=== PATIENT | female | born 1955 | race Caucasian/White ===

== ENCOUNTER 2020-03-16 13:35 | Outpatient (CLI) | payer MEDICARE, SELFPAY ==
--- NOTE | ~2020-03-16 | CT_ITS ---
EXAMINATION: CT abdomen w con DATE: 03/16/2020 14:22 INDICATION: Disease of the digestive system TECHNIQUE: Computed tomography (CT) of the abdomen and pelvis was performed with 100 mL Omnipaque-350 intravenous contrast. Automated exposure control and iterative reconstruction technique were employe d. The dose-length product was 319.84 mGy-cm. COMPARISON: 11/13/2018 FINDINGS: Lung bases are clear. Heart size is normal. No pericardial or pleural effusion. Geographic regions of subtly increased enhancement segments 4A and 4B of the liver as well as segment 6 which could repres ent either regions of focal fatty sparing or transient hepatic attenuation difference. No suspicious masslike hepatic lesions identified. Gallbladder, spleen, pancreas, bilateral adrenal glands and kidn eys are normal. Visualized portions of the bowels are unremarkable with no wall thickening or obstruc tion. There is calcified atherosclerosis of the aorta and many of the other arteries. Again seen is m ild stenosis at the proximal superior mesenteric artery. The prior stenosis at the celiac axis as it passes beneath decrease of the diaphragm is not appreciated in the current study with no significant current stenosis. No pathologically enlarged abdominal or pelvic lymphadenopathy. Bones are unremarka ble. IMPRESSION: 1. 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 Mild residual stenosis at the prox imal superior mesenteric artery. Reviewed, dictated and finalized at location A. ENCE COORDINATOR IMPRESSION: 1. 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 Mild residua l stenosis at the proximal superior mesenteric artery.
[2020-03-16 14:07] LABS: Basophils Percent Auto 0.2 % (0.2-1.2); Eosinophils Absolute Auto 0.1 K/mm3 (0-0.3); Eosinophils Percent Auto 0.5 % (0-4.4); Hematocrit 47.1 % (37.0-47.0); Immature Granulocyte Absolute 0.03 K/mm3 (0.00-0.031); Immature Granulocyte Percent A 0.3 % (0-0.5); Lymphocytes Absolute Auto 4.02 K/mm3 (0.9-3.2); Lymphocytes Percent Auto 40.7 % (18.3-44.2); Mean Corpuscular HGB Conc 31.8 g/dl (32-36); Mean Corpuscular Hemoglobin 28.6 pg (26-34); Mean Corpuscular Volume 89.9 fl (80-100); Monocytes Absolute Auto 0.9 K/mm3 (0.1-0.6); Monocytes Percent Auto 9.1 % (2.6-8.5); Neutrophils Absolute Auto 4.9 K/mm3 (1.3-6.7); Neutrophils Percent Auto 49.2 % (45.5-73.1); Platelet Count Result 279 k/mm3 (150-375); Red Blood Count 5.24 M/mm3 (4.2-5.4); Red Cell Distribution Width 13.3 % (11.5-14.5); White Blood Count 9.9 K/mm3 (4.5-10.0)
[2020-03-16 14:15] LABS: INR 0.9; Prothrombin Time 12.5 Seconds (11.1-14.7)
[2020-03-16 14:16] LABS: Alanine Aminotransferase 13 U/L (4-35); Albumin Level 4.1 g/dL (3.5-5.1); Alkaline Phosphatase 64 U/L (38-126); Amylase 65 U/L (30-110); Anion Gap 7 mmol/L (8-16); Aspartate Amino Transferase 24 U/L (14-36); Bilirubin,Total 0.3 mg/dL (0.2-1.3); Blood Urea Nitrogen 16 mg/dL (7-17); Calcium 9.1 mg/dL (8.4-10.2); Carbon Dioxide 27 mmol/L (22-30); Chloride 105 mmol/L (98-107); Estimated Glomerular Filt Rate > 60; Glucose 101 mg/dL (65-105); Lipase 60 U/L (23-300); Sodium 139 mmol/L (137-145)
[2020-03-16 14:16] LABS: Estimated Glomerular Filt Rate > 60
== END 2020-03-16 13:36 | disposition home or self-care (01) ==
LOC: ANHIMG 13:36
PROVIDERS: PCP Internal Medicine; Visit Provider Internal Medicine
DX: R10.9 Unspecified abdominal pain (principal); K52.9 Noninfective gastroenteritis and colitis, unspecified; I70.0 Atherosclerosis of aorta
CPT/HCPCS: 36415; 74160; 80053; 82150; 83690; 85025; 85610; Q9967

== ENCOUNTER 2020-05-14 00:50 | Outpatient (CLI) | payer MEDICARE, SELFPAY ==
[2020-05-14 18:47] LABS: SARS-CoV-2 RNA PCR Negative
== END 2020-05-14 00:51 | disposition home or self-care (01) ==
LOC: ANHCOVIDDT 00:51
PROVIDERS: PCP Internal Medicine; Visit Provider Internal Medicine Gastroenterology
DX: Z01.812 Encounter for preprocedural laboratory examination (principal); Z20.822 Contact with and (suspected) exposure to COVID-19
CPT/HCPCS: C9803; U0003; U0005

== ENCOUNTER 2020-05-17 01:43 | Day surgery (SDC) | payer MEDICARE, SELFPAY ==
[2020-05-10 08:59] VITALS: BMI 23.8
[2020-05-17] VITALS (10 sets, daily range): BP systolic 86–131; BP diastolic 55–97; PULSE 72–103; RESP 18–28; TEMP 36.9; O2SAT 92–98
--- NOTE | ~2020-05-17 | XR_ITS ---
EXAMINATION: XR abdomen/kub 1V EXAM DATE: 05/17/2020 13:45 INDICATION: Abdominal pain post sigmoidoscopy. TECHNIQUE: Frontal upright projection of the upper abdomen, frontal projection of the lower abdomen f or interpretation. There is no prior study for comparison. FINDINGS: There is expected amount of colonic stool and gas. No small bowel dilation, nonobstructiv e bowel gas pattern. There are no suspicious calcifications identified. There is no organomegaly suspected. There are mild bony degenerative changes. IMPRESSION: Unremarkable KUB exam. Please note upright exam is more sensitive for free intraperitone al gas. Reviewed, dictated and finalized at location B. ERCIAL MANAGER IMPRESSION: Unremarkable KUB exam. Please note upright exam is more sensitive for free intraperitoneal gas.
[2020-05-17] MEDS: LACTATED RINGERS 1,000 ML 150 ML IV CONT (10:10)
--- NOTE | 2020-05-17 10:37 | WPDANESEPPF ---
Anes - Initial Pre Proc Eval Procedure: Operation Date: 05/17/20 11:00 Proposed Procedures p Esophagogastroduodenoscopy & Colonoscopy - Hadley Castellano MD Date/Time: 05/17/20 10:37 Surgeon: Hadley Castellano MD Pre Op Diagnosis: Colitis, Abd Pain, Nausea Patient Data Age: 64 Gender: F Height: 5 ft 5 in Weight: 65.8 kg Last Vital Signs Temp 98.5 F 05/17/20 09:55 Pulse 103 H 05/17/20 09:55 Resp 18 05/17/20 09:55 BP 121/79 05/17/20 09:55 Pulse Ox 97 05/17/20 09:55 Allergies Allergy/AdvReac Type Severity Reaction Status Date / Time ciprofloxacin Allergy Unknown Rash Verified 05/17/20 09:50 propoxyphene Allergy Unknown FROM Verified 05/17/20 09:50 DARVOCET Home Medications Medication Instructions Recorded Confirmed Type doxylamine succinate 25 mg tablet 25 mg PO ONCE 02/21/19 05/10/20 History albuterol sulfate 90 mcg/actuation 2 puff INHALATION Q6H PRN #18 gm 07/14/19 05/10/20 Rx aerosol inhaler lisinopril 10 mg tablet 10 mg PO DAILY #90 tablet 03/24/20 05/10/20 Rx omeprazole 20 mg capsule,delayed 20 mg PO DAILY #90 cap 03/24/20 05/10/20 Rx release simvastatin 10 mg tablet 10 mg PO DAILY #90 tablet 03/24/20 05/10/20 Rx lorazepam 0.5 mg tablet 0.5 mg PO BID PRN #60 tablet 04/29/20 05/10/20 Rx estradiol 0.5 mg PO DAILY 05/10/20 05/10/20 History Patient hx anesthesia problems: none Family hx anesthesia problems: none PMFSH Past Medical History Medical History (Updated 05/17/20 @ 10:36 by Kingsley Snyder MD) Essential (primary) hypertension Hyperlipidemia Nausea Non-cardiac chest pain ALEKSANDRA (obstructive sleep apnea) Surgical History Surgical History (Updated 03/29/20 @ 15:20 by Skylar Fay MA) H/O: hysterectomy Family History Family History Sibling Patient's sister is in good health Patient's brother is in good health Cerebrovascular accident Mother Hypertension Father Family history of cardiovascular disease Social History Social History Social History: 1-3 cigarettes a day Smoking packs per day: 1 Smoking cigarettes per day: 20.0 Years smoked: 45 Smoking pack-years: 45.00 Smoking status: Current every day smoker Tobacco type: cigarettes Second hand tobacco smoke exposure: No Alcohol intake: never Substance use type: does not use Living arrangements: with family Spiritual care concerns: No Anes - Eval Final PreProcedure Day of Procedure 05/17/20 10:37 Patient weight: normal Heart: regular rate and rhythm Lungs: clear to auscultation Airway: Mallampati scale class II Neurological: alert and oriented Last oral intake: >/= 8 hours ASA classification: III Emergent: no Anesthetic plan: proceed Anesthesia type and monitoring: general GIVS and standard monitoring Informed Consent: The patient's anesthetic plan and its attendant risks and benefits were discussed with the patient/family/POA. Questions were solicited and answers provided to the satisfaction of the patient/family/POA.
--- NOTE | 2020-05-17 10:41 | PM.HPGS ---
History of Present Illness History of Present Illness Consent: Risks, benefits, and alternatives have been discussed and questions answered. Patient agrees to proceed with procedure. Chief complaint: Colitis, Abd Pain, Nausea Narrative: Nuha Back is a 64 year old female with nausea and dyspepsia, using omeprazole. Also she was having pain in rlq but improved now, she has history of ischemic colitis, last colonoscopy could not pass sigmoid because edema. Review of Systems Constitutional: Constitutional: Denies headache(s) and Denies weakness Eyes: Eyes: Denies blurry vision ENT: Reports Normal hearing present, Denies headache(s) and Denies neck pain Cardiovascular: Cardiovascular: Denies chest pain and Denies dyspnea Respiratory: Respiratory: Denies dyspnea Gastrointestinal: Gastrointestinal: Reports no additional gastrointestinal complaints Genitourinary: Genitourinary: Denies dysuria Musculoskeletal: Musculoskeletal: Denies neck pain Integumentary/Breasts: Skin/Breast: Denies dry skin Neurologic: Reports Normal hearing present, Denies headache(s) and Denies weakness Psychiatric: Psychiatric: Denies anxiety Endocrine: Endocrine: Denies change in body appearance Hematologic/Lymphatic: Hematologic/Lymphatic: Denies easy bleeding Allergic/Immunologic: Allergic/Immunologic: Denies urticaria PMFSH Past Medical History Medical History (Updated 05/17/20 @ 10:36 by Kingsley Snyder MD) Essential (primary) hypertension Hyperlipidemia Nausea Non-cardiac chest pain ALEKSANDRA (obstructive sleep apnea) Surgical History Surgical History (Updated 03/29/20 @ 15:20 by Skylar Fay MA) H/O: hysterectomy Family History Family History Sibling Patient's sister is in good health Patient's brother is in good health Cerebrovascular accident Mother Hypertension Father Family history of cardiovascular disease Social History Social History Social History: 1-3 cigarettes a day Smoking packs per day: 1 Smoking cigarettes per day: 20.0 Years smoked: 45 Smoking pack-years: 45.00 Smoking status: Current every day smoker Tobacco type: cigarettes Second hand tobacco smoke exposure: No Alcohol intake: never Substance use type: does not use Living arrangements: with family Spiritual care concerns: No Meds Home Medications and Allergies Home Medications Medication Instructions Recorded Confirmed Type doxylamine succinate 25 mg tablet 25 mg PO ONCE 02/21/19 05/10/20 History albuterol sulfate 90 mcg/actuation 2 puff INHALATION Q6H PRN #18 gm 07/14/19 05/10/20 Rx aerosol inhaler lisinopril 10 mg tablet 10 mg PO DAILY #90 tablet 03/24/20 05/10/20 Rx omeprazole 20 mg capsule,delayed 20 mg PO DAILY #90 cap 03/24/20 05/10/20 Rx release simvastatin 10 mg tablet 10 mg PO DAILY #90 tablet 03/24/20 05/10/20 Rx lorazepam 0.5 mg tablet 0.5 mg PO BID PRN #60 tablet 04/29/20 05/10/20 Rx estradiol 0.5 mg PO DAILY 05/10/20 05/10/20 History Allergies Allergy/AdvReac Type Severity Reaction Status Date / Time ciprofloxacin Allergy Unknown Rash Verified 05/17/20 09:50 propoxyphene Allergy Unknown FROM Verified 05/17/20 09:50 DARVOCET Vital Signs Vital Signs - 24 hr 05/17/20 09:55 Temperature 98.5 F Pulse Rate 103 H Respiratory Rate 18 Blood Pressure 121/79 Pulse Oximetry 97 Exam Const: General: comfortable and no acute distress HENMT: General nose exam: Normal nares present Eyes: General: appearance normal, both eyes and all related structures Neck: Neck: no JVD Resp: Auscultation: clear to auscultation bilaterally Cardio: Rate: regular rate Rhythm: regular rhythm GI: Inspection: non-distended GI Palp: Yes Soft to palpation Skin: General skin exam: normal color Neuro: General: gait normal Speech: normal speech Extrem: General: n
[2020-05-17] MEDS: ONDANSETRON INJ 4 MG/2 ML VIAL IV PUSH (11:49)
--- NOTE | 2020-05-17 11:50 | SUR.PHASEII ---
PATIENT HAVING STOMACH CRAMPS AND DRY HEAVING. DR. OSEI CALLED AND ORDERS GIVEN
--- NOTE | 2020-05-17 13:28 | SUR.PHASEII ---
PATIENT STILL HAVING ABDOMINAL PAIN AFTER MULTIPLE TRIPS TO RESTROOM AND WALKS AROUND UNIT. PATIENT STATES AT THIS TIME, 1329, THAT PAIN HAS INCREASED AND NOT GETTING BETTER. DR. GASPAR AWARE AND IN SPEAKING WITH PATIENT.
--- NOTE | 2020-05-17 13:36 | SUR.PHASEII ---
ORDERS GIVEN FOR KUB PER DR. GASPAR. RADIOLOGY CALLED AND WILL COME TO ENDO FOR PROCEDURE. PATIENTS CALLED AND UPDATED AND ASKED TO COME SIT WITH PATIENT.
== END 2020-05-17 14:27 | disposition home or self-care (01) ==
PROVIDERS: PCP Internal Medicine; Visit Provider Internal Medicine Gastroenterology
PROC: 0DJ08ZZ Inspection of Upper Intestinal Tract, Via Natural or Artificial Opening Endoscopic (ICD-10-PCS; CPT 43235; principal; 2020-05-17 11:00)
DX: R10.31 Right lower quadrant pain (principal); K57.30 Diverticulosis of large intestine without perforation or abscess without bleeding; K64.8 Other hemorrhoids; K29.50 Unspecified chronic gastritis without bleeding; R07.89 Other chest pain; K21.9 Gastro-esophageal reflux disease without esophagitis; Z87.19 Personal history of other diseases of the digestive system; I10 Essential (primary) hypertension; E78.5 Hyperlipidemia, unspecified; G47.33 Obstructive sleep apnea (adult) (pediatric); F17.210 Nicotine dependence, cigarettes, uncomplicated
CPT/HCPCS: 43239; 45378; 74018; 88305; J2001; J2405; J2704; J7120

== ENCOUNTER 2020-06-28 09:09 | Outpatient (CLI) | payer MEDICARE, SELFPAY ==
--- NOTE | 2020-06-28 09:31 | EST_ITS ---
Patient Info Name: Nuha Back Age: 64 years : 1955 Gender: Female Ht: 65 in Wt: 145 lbs BSA: 1.75 m2 HR: 74 bpm BP: 143 / 83 mmHg Heart Rhythm: Sinus Rhythm Exam Date: 06/28/2020 9:46 AM Exam Location: [facility] Patient Status: Outpatient Admit Date: 06/28/2020 Staff Ordering Physician: Rudy Mccarthy DO Clinical Data Management Manager: Ashlee Watts RDCS Attending Provider: Rudy Mccarthy DO Exercise Technologist: Shilpa Martin RDCS Exam Type: CA stress echo Study Info Indications E78.4 - Other hyperlipidemia R07.89 - Other chest pain Treadmill exercise stress echocardiogram is performed. Summary 1. 1. Negative Deric exercise stress test for ischemic ST changes by ECG criteria. 2. 2. Reduced functional capacity, achieving 7 METs of workload. 3. 3. Baseline hypertension. 4. 4. Appropriate HR response to exercise. 5. 5. Appropriate HR recovery at 1 minute post exercise. 6. 6. Negative stress echocardiogram for ischemia by wall motion analysis. 7. 7. Patient informed of the above results. Stress Echo Findings Left Ventricle Appropriate increase in LV endocardial thickening with systole. Appropriate augmentation of contractility with systole. No wall motion abnormality. Left Ventricle Normal LV systolic function, no wall motion abnormality. Protocol: Deric Stress ECG Details Stage: REST Duration (min): 0 min : 36 sec Speed (mph): 0.0 Grade (%): 0 HR (bpm): 76 SBP (mmHg): 147 DBP (mmHg): 83 METS: --- Stage: REST Duration (min): 11 min : 7 sec Speed (mph): 0.0 Grade (%): 0 HR (bpm): 83 SBP (mmHg): 147 DBP (mmHg): 83 METS: --- Stage: STAGE 1 Duration (min): 1 min : 0 sec Speed (mph): 1.7 Grade (%): 10 HR (bpm): 108 SBP (mmHg): 147 DBP (mmHg): 83 METS: --- Stage: STAGE 1 Duration (min): 2 min : 0 sec Speed (mph): 1.7 Grade (%): 10 HR (bpm): 123 SBP (mmHg): 147 DBP (mmHg): 83 METS: --- Stage: STAGE 1 Duration (min): 3 min : 0 sec Speed (mph): 1.7 Grade (%): 10 HR (bpm): 130 SBP (mmHg): 174 DBP (mmHg): 93 METS: --- Stage: STAGE 2 Duration (min): 1 min : 0 sec Speed (mph): 2.5 Grade (%): 12 HR (bpm): 143 SBP (mmHg): 174 DBP (mmHg): 93 METS: --- Stage: STAGE 2 Duration (min): 2 min : 0 sec Speed (mph): 2.5 Grade (%): 12 HR (bpm): 154 SBP (mmHg): 168 DBP (mmHg): 91 METS: --- Stage: STAGE 2 Duration (min): 2 min : 1 sec Speed (mph): 0.0 Grade (%): 0 HR (bpm): 155 SBP (mmHg): 168 DBP (mmHg): 91 METS: --- Stage: RECOVERY Duration (min): 0 min : 58 sec Speed (mph): 0.0 Grade (%): 0 HR (bpm): 134 SBP (mmHg): 168 DBP (mmHg): 91 METS: --- Stage: RECOVERY Duration (min): 1 min : 58 sec Speed (mph): 0.0 Grade (%): 0 HR (bpm): 122 SBP (mmHg): 189 DBP (mmHg): 102 METS: --- Stage: RECOVERY Duration (min):
== END 2020-06-28 09:10 | disposition home or self-care (01) ==
LOC: ANHCARD 09:13
PROVIDERS: PCP Internal Medicine; Visit Provider Internal Medicine Cardiovascular Disease
DX: R07.89 Other chest pain (principal); E78.5 Hyperlipidemia, unspecified
CPT/HCPCS: 93351

== ENCOUNTER 2020-10-06 12:41 | Outpatient (CLI) | payer MEDICARE, SELFPAY ==
--- NOTE | 2020-10-07 07:17 | WPDPFTINT ---
PFT Procedure Performed PFT Procedure Performed Spirometry with Pre/Post Bronchodilator Plethysmography (Lung Vol) Diffusing Cap (DLCO) Flow Vol Loop PFT Interpretation This is a pulmonary function test with pre and post-bronchodilator spirometry, plethysmography and diffusing capacity. The test was performed and results interpreted in accordance with the 2019 and 2005 ATS/ERS Task Force guidelines respectively using the Global Lung Function Initiative-2012 reference equations. Patient demonstrated good effort and cooperation. Reproducibility criteria were met. The quality of the pre bronchodilator spirometry maneuver was Grade A and post bronchodilator spirometry maneuver was Grade A. Findings: Spirometry: there is decreased maximal expiratory airflow at all lung volumes with a concave expiratory flow tracing. The contour the inspiratory flow tracing is normal. The pre bronchodilator FVC is 3.04 L, 98% predicted. The pre bronchodilator FEV1 is 1.18 L, 49% predicted. The FEV1: FVC ratio is 39%. The post bronchodilator FVC is 3.08 L, representing 1% increase. The post bronchodilator FEV1 is 1.24 L, representing a 5% increase. Plethysmography: The total lung capacity is 6.18 L, 119% predicted. The functional residual capacity is 3.89 L, 131% predicted. The residual volume is 3.09 L, 145% predicted. Diffusion capacity: The absolute diffusion capacity is 13.2, 61% predicted. The diffusing capacity corrected for alveolar volume is 3.43, 79% predicted. Impression: There is a severe obstructive abnormality without significant improvement after inhaling a single dose of albuterol. The increase in residual volume is consistent with air trapping from an obstructive abnormality. The absolute diffusing capacity is mildly decreased and normalizes when corrected for alveolar volume. There are no prior studies for comparison
== END 2020-10-06 12:42 | disposition home or self-care (01) ==
LOC: ANHPFT 12:42
PROVIDERS: PCP Internal Medicine; Visit Provider Internal Medicine
DX: R06.00 Dyspnea, unspecified (principal)
CPT/HCPCS: 94060; 94726; 94729

== ENCOUNTER 2020-11-01 09:55 | Outpatient (CLI) | payer MEDICARE, SELFPAY ==
--- NOTE | ~2020-11-01 | XR_ITS ---
EXAMINATION: XR chest 2V DATE: 11/01/2020 11:27 INDICATION: Encounter for other preprocedural examination, history of asthma and hypertension TECHNIQUE: PA and lateral views of the chest are obtained. COMPARISON: 04/19/2006 FINDINGS: The lungs are free of acute opacities. There is no pleural effusion or pneumothorax. The ca rdiomediastinal silhouette is normal. There is moderate thoracic spondylosis. IMPRESSION: 1. No acute cardiopulmonary abnormality. Reviewed, dictated and finalized at location B.
[2020-11-01 11:31] LABS: Hematocrit 47.2 % (37.0-47.0); Hemoglobin 14.5 g/dL (12.0-15.0); Mean Corpuscular HGB Conc 30.7 g/dl (32-36); Mean Corpuscular Hemoglobin 25.3 pg (26-34); Mean Corpuscular Volume 82.5 fl (80-100); Mean Platelet Volume 9.4 fl (7.4-10.4); Platelet Count Result 359 k/mm3 (150-375); Red Blood Count 5.72 M/mm3 (4.2-5.4); Red Cell Distribution Width 19.3 % (11.5-14.5); White Blood Count 8.5 K/mm3 (4.5-10.0)
[2020-11-01 11:41] LABS: Anion Gap 9 mmol/L (8-16); Blood Urea Nitrogen 15 mg/dL (7-17); Calcium 10.1 mg/dL (8.4-10.2); Carbon Dioxide 32 mmol/L (22-30); Chloride 102 mmol/L (98-107); Estimated Glomerular Filt Rate > 60; Glucose 99 mg/dL (65-110); Potassium 4.3 mmol/L (3.4-5.0); Sodium 143 mmol/L (137-145)
== END 2020-11-01 09:56 | disposition home or self-care (01) ==
LOC: ANHSURGERY 10:01
PROVIDERS: PCP Internal Medicine; Visit Provider Surgery
DX: Z01.818 Encounter for other preprocedural examination (principal); I10 Essential (primary) hypertension; J45.909 Unspecified asthma, uncomplicated
CPT/HCPCS: 36415; 71046; 80048; 85027

== ENCOUNTER 2020-11-17 17:25 | Inpatient (IN) | payer MEDICARE, SELFPAY ==
[2020-11-01 10:08] VITALS: BMI 25.0
[2020-11-01 11:12] VITALS: BP 132/78; PULSE 85; RESP 16; TEMP 37.2; O2SAT 98
--- NOTE | 2020-11-15 12:03 | PM.IMHP ---
H&P: HPI History of Present Illness Date/Time: 11/15/20 12:03 Chief Complaint: Abdominal pain Narrative: patient is a 64-year-old woman who has had abdominal pain for over 2 years. She had ischemic colitis about 2 years ago. In 2018, Dr. Tavarez attempted to perform a colonoscopy. However she had such severe stricture of the sigmoid colon and diverticular disease at the scope would not pass. Subsequently the patient has had at least 4 attacks of abdominal pain that is mostly in the right lower quadrant. She will experience diaphoresis and have the urge to have a bowel movement. Then she has diarrhea vomiting and feels exhausted for at least a couple of days. Patient is a long-time smoker although she quit recently. Her CT scans were suggestive of mesenteric vascular disease. However, she saw Dr. Tyler Martinez, a vascular surgeon at [facility] who felt there was no evidence of chronic mesenteric ischemia. Because of her persistent symptoms, Dr. Padilla attempted to perform a colonoscopy last May. The narrowing of the sigmoid was very significant and not even a gastroscope would pass beyond. Following this the patient had severe abdominal pain even requested an x-ray which was negative. She had rectal bleeding for about a month. She avoids certain types of foods particularly any roughage such as vegetables. She saw Dr. Tavarez in September who referred her to me for persistent sigmoid colon stricture and obstructive symptoms. She was seen in the office and after discussion, has had full bowel prep and is now admitted to be taken to surgery for hand access laparoscopic sigmoid colectomy. At the time of her office visit, it was reported she had stopped smoking last May. She had pulmonary function tests in late September which were abnormal showing a severe obstructive pattern. She saw a lag screwer just recently and his report suggests she was smoking when she had her pulmonary function tests. This report also states she had stopped about 6 weeks ago. His consultation suggests she has about a 15% risk of pulmonary complications postoperatively. She also has significant risks for complete colonic obstruction and despite these pulmonary risks, she is taken to surgery now for the above surgery. Review of Systems Review of Systems: All systems reviewed & are unremarkable except as noted in HPI and below Constitutional: Constitutional: Reports as per HPI, Reports fatigue, Reports night sweats and Reports weight gain Cardiovascular: Cardiovascular: Reports as per HPI, Denies chest pain, Denies edema, Denies palpitations and Reports dyspnea on exertion Respiratory: Respiratory: Reports as per HPI, Denies cough, Denies dyspnea, Denies stridor and Denies wheezing Gastrointestinal: Gastrointestinal: Reports as per HPI, Reports abdominal pain, Reports bloating, Reports constipation and Reports nausea Neurologic: Reports headache(s) Psychiatric: Psychiatric: Reports anxiety Hematologic/Lymphatic: Hematologic/Lymphatic: Reports easy bleeding and Reports easy bruising Allergic/Immunologic: Allergic/Immunologic: Reports seasonal rhinorrhea PMFSH Past Medical History Medical History Colon, diverticulosis Essential (primary) hypertension Hyperlipidemia Nausea Non-cardiac chest pain ALEKSANDRA (obstructive sleep apnea) RLQ abdominal pain Surgical History Surgical History H/O foot surgery H/O: hysterectomy Family History Family History Sibling Patient's sister is in good health Patient's brother is in good health Cerebrovascular accident Mother Hypertension Father Family history of cardiovascular disease Social History Social History Social History: 1-3 cigarettes a day Smoking packs per day: 1 Brittanii
[2020-11-17] VITALS (10 sets, daily range): BP systolic 92–132; BP diastolic 53–81; PULSE 89–110; RESP 10–18; TEMP 35.6–36.7; O2SAT 82–100
[2020-11-17] MEDS: ACETAMINOPHEN 500 MG TABLET 1000 MG PO (09:18)
[2020-11-17] MEDS: LACTATED RINGERS 1,000 ML 30 ML IV CONT ×2 (09:35→16:29)
[2020-11-17] MEDS: KETOROLAC 15 MG/ML VIAL (*BKC) IV PUSH (09:42)
--- NOTE | 2020-11-17 09:55 | SUR.PREOP ---
0945-PT AND SPOUSE AWARE PRIOR SURGEON DELAYS DR. RESENDIZ UNTIL ~[id number].
--- NOTE | 2020-11-17 10:47 | WPDANESEPPF ---
Anes - Initial Pre Proc Eval Procedure: Operation Date: 11/17/20 10:30 Proposed Procedures p Hand Assisted Laparoscopic Sigmoidectomy - Marco A Hurley MD Date/Time: 11/17/20 10:47 Surgeon: Marco A Hurley MD Pre Op Diagnosis: diverticulitis, colon stricture Patient Data Age: 65 Gender: F Height: 1.65 m Weight: 69.6 kg Last Vital Signs Temp 36.7 C 11/17/20 08:47 Pulse 101 H 11/17/20 08:47 Resp 16 11/17/20 08:47 BP 126/78 11/17/20 08:47 Pulse Ox 99 11/17/20 08:47 Allergies Allergy/AdvReac Type Severity Reaction Status Date / Time ciprofloxacin AdvReac Mild RASH AND Verified 11/17/20 09:02 NAUSEA propoxyphene AdvReac Mild Nausea and Verified 11/17/20 09:02 Vomiting Home Medications Medication Instructions Recorded Confirmed Type doxylamine succinate 25 mg tablet 25 mg PO HS 02/21/19 11/17/20 History albuterol sulfate 90 mcg/actuation 2 puff INHALATION Q6H PRN #18 gm 07/14/19 11/17/20 Rx aerosol inhaler lisinopril 10 mg tablet 10 mg PO DAILY #90 tablet 03/24/20 11/17/20 Rx omeprazole 20 mg capsule,delayed 20 mg PO DAILY #90 cap 03/24/20 11/17/20 Rx release estradiol 0.5 mg PO DAILY 05/10/20 11/17/20 History rosuvastatin 20 mg tablet 20 mg PO DAILY #90 tablet 06/17/20 11/17/20 Rx arginine (L-arginine) 1,000 mg PO TID 11/01/20 11/17/20 History ascorbic acid (vitamin C) 1,000 mg PO BID 11/01/20 11/17/20 History aspirin [Adult Low Dose Aspirin] 81 mg PO DAILY 11/01/20 11/17/20 History cholecalciferol (vitamin D3) 50 mcg PO BID 11/01/20 11/17/20 History melatonin 5 mg PO HS PRN 11/01/20 11/17/20 History multivitamin [Multi-Vitamins] 1 tablet PO DAILY 11/01/20 11/17/20 History zinc 50 mg PO BID 11/01/20 11/17/20 History lorazepam 0.5 mg tablet 0.5 mg PO BID PRN #60 tablet 11/02/20 11/17/20 Rx metronidazole 500 mg tablet 500 mg PO .COMPLEX #3 tablet 11/04/20 11/17/20 Rx neomycin 500 mg tablet See Rx Instructions .ROUTE 11/04/20 11/17/20 Rx .COMPLEX #6 tablet [id number] 2 inh INHALATION BID 11/17/20 11/17/20 History [Breztri Aerosphere] Patient hx anesthesia problems: none Family hx anesthesia problems: none PMFSH Past Medical History Medical History Colon, diverticulosis Essential (primary) hypertension Hyperlipidemia Nausea Non-cardiac chest pain ALEKSANDRA (obstructive sleep apnea) RLQ abdominal pain Surgical History Surgical History H/O foot surgery H/O: hysterectomy Family History Family History Sibling Patient's sister is in good health Patient's brother is in good health Cerebrovascular accident Mother Hypertension Father Family history of cardiovascular disease Social History Social History Social History: 1-3 cigarettes a day Smoking packs per day: 1 Smoking cigarettes per day: 20.0 Years smoked: 45 Smoking pack-years: 45.00 Smoking status: Former smoker Tobacco type: cigarettes Second hand tobacco smoke exposure: No Smoking end date: 05/17/20 Additional smoking assessment comments: STATES HAD ONE CIGARETTE 10/30/20 USES NICOTINE PATCH Alcohol intake: never Substance use type: does not use Living arrangements: with family Spiritual care concerns: No Anes - Eval Final PreProcedure Day of Procedure 11/17/20 10:47 Patient weight: normal Heart: regular rate and rhythm Lungs: clear to auscultation and normal air movement Airway: Mallampati scale class II Neurological: alert and oriented Last oral intake: >/= 8 hours ASA classification: III Emergent: no Anesthetic plan: proceed Anesthesia type and monitoring: general ETT Informed Consent: The patient's anesthetic plan and its attendant risks and benefits were discussed with the patient/family/POA. Questions were solicit
[2020-11-17] MEDS: ALVIMOPAN 12 MG CAPSULE PO (10:58)
--- NOTE | 2020-11-17 11:17 | WPDHPUPDATE1 ---
History and Physical Update Update Date/Time: 11/17/20 11:17 History and Physical has been reviewed, including an updated exam of the patient. There are NO changes in the patient's condition. Risks, benefits, and alternatives have been discussed and questions answered. Patient agrees to proceed with procedure.
[2020-11-17] MEDS: metroNIDAZOLE 500 MG/ISO 100ML 500 MG/100 ML BAG 100 MG IVPB (12:21)
[2020-11-17] MEDS: ceFAZolin 2 GM/D5W 50 ML 2 GM/50 ML BAG IVPB (12:21)
[2020-11-17] MEDS: BUPIVACAINE/EPINEPHRINE 0.5% 50 ML VIAL (13:37)
[2020-11-17] MEDS: fentaNYL CITRATE INJ (*CRX) 100 MCG/2 ML VIAL 25 MCG IV PUSH ×3 (16:50→17:18)
--- NOTE | 2020-11-17 16:53 | W.PM.PROC2 ---
Procedure Note - Detailed Date of Procedure 11/17/20 Pre-op Diagnosis diverticulitis, colon stricture Post-op Diagnosis same Procedure Performed hand access laparoscopic sigmoidectomy with stapled colorectal anastomosis Surgeon Marco A Hurley MD Collections Analyst Melania BECKMANA CANDLE CUTTER Anesthesia general and local ( 0.5% Marcaine with epinephrine) Indications the patient is been bothered by recurrent episodes of right lower quadrant abdominal pain, narrow stools and bloating. She is known to have a significant sigmoid colon stricture. At colonoscopy, even a gastroscope could not pass this stricture. She is taken to surgery now for laparoscopic sigmoidectomy. She has a previous history of ischemic colitis as well as diverticulitis, either of which could have caused the stricture. Findings The sigmoid colon was balled up in the pelvis likely due to diverticular disease. No evidence of malignancy was noted. Number 28 EEA anastomosis was performed. Prep was poor. Description of Procedure Patient was taken to surgery and induced into general anesthesia. She was placed in lithotomy with Evaristo stirrups. Rectal irrigation and rectal tube were placed. Corona catheter was placed. Full prep and drape was carried out. The proposed hand access port in the lower abdominal midline was marked on the skin. Local was infiltrated into the skin and subcutaneous. Incision was made dissection was carried down through the subcutaneous. Cautery was used for hemostasis. Eventually we encountered the anterior rectus fascia. This was infiltrated with local as well. Anterior rectus fascia was then divided between the 2 rectus muscles. We continued the dissection to the peritoneum and then entered the peritoneum. This opening was extended the length of the wound. The Morales GelPort was then placed. The GelPort was placed and I put a hand in the abdomen. A 10 11 port at the left lateral abdomen was then placed after using local anesthetic. In similar fashion, a mid abdominal 10 11 port and a left sided 12 mm port were placed. The patient was placed in Trendelenburg. Laparoscopic survey was carried out. The left colon and sigmoid colon were pretty well plastered to the left abdominal sidewall. Nearly all the dissection was done with the LigaSure. LigaSure was used to free these adhesions and mobilized the distal descending and sigmoid colon. The ureter was found early on. It was dissected and a red vessel loop was placed around the ureter. The 2 ends were clipped to 1 another so it could be readily identifiable again later in the case. As we entered the upper portion of the pelvis, the ball shaped adhesions of the sigmoid colon were noted. It was doubled back on itself in 2 [address]. I took down some of the adhesions of epiploica 2 sigmoid colon taking care not to injure the bowel. Eventually the sigmoid was relatively straight and although the area of worse disease was identifiable and was in the distal sigmoid. There were not a lot of diverticuli noted but this it seemed to be the most plausible etiology. I then mobilized some additional descending colon nearly up to the splenic flexure. I dissected in the sigmoid colon mesentery again with the LigaSure. I found an area of healthy distal descending colon and chose this as the proximal line of resection. I used the LigaSure up to the colon at this site. From there I divided the mesentery to the rest of the sigmoid colon taking care not to injure the ureter. The mesentery was divided over the sacral promontory and down into the pelvis. There was literally no bleeding associated with this. Eventually an area of healthy upper rectum was noted. I divided the mesentery up to this area with the LigaSure. From there we stopped insufflation and removed the GelPort. I brought up the sigmoid colon. The area of the proximal line of resection was easily eviscerated. I used some additional cautery and freed the fat
--- NOTE | 2020-11-17 17:08 | SUR.PHASEI ---
1715 sbar faxed floor notified
--- NOTE | 2020-11-17 17:43 | ADMGEN ---
This patient, Nuha Back, was admitted to 2 Medical Room 242-. Patient/family oriented to hospital policies and general routines including ID bracelet, bed and alarms, visiting hours, pain management, procedures, bathroom and other care routines, personal items, smoking policy, room service/diet, and visiting hours. Information on how to activate the Rapid Response Team has been discussed. Patient/Family are encouraged to report perceived risks to care and to ask questions if they do not understand what they are told or what they should do.
[2020-11-17] MEDS: MORPHINE SULFATE (*CRX) 2 MG/ML INJ IV PUSH (18:03)
[2020-11-17] MEDS: LACTATED RINGERS 1,000 ML 100 ML IV CONT (18:03)
[2020-11-17] MEDS: MORPHINE SULFATE (*CRX) 4 MG/ML INJ IV PUSH (20:09)
[2020-11-17] MEDS: ONDANSETRON INJ 4 MG/2 ML VIAL IV PUSH (21:04)
[2020-11-17] MEDS: FAMOTIDINE 20 MG/2 ML VIAL IV PUSH (21:25)
[2020-11-17] MEDS: ENOXAPARIN 30 MG/0.3 ML SYRINGE SUB-Q (21:26)
[2020-11-17] MEDS: HYDROcodone/acetaminophen (*CRX) 5-325 MG TABLET 1 TAB PO (22:14)
[2020-11-18] MEDS: MORPHINE SULFATE (*CRX) 4 MG/ML INJ IV PUSH ×2 (00:25→05:44)
[2020-11-18 01:27] VITALS: BP 129/80; PULSE 99; RESP 18; TEMP 36.4; O2SAT 96
[2020-11-18] MEDS: ONDANSETRON INJ 4 MG/2 ML VIAL IV PUSH ×2 (03:24→07:45)
[2020-11-18] MEDS: LACTATED RINGERS 1,000 ML 100 ML IV CONT ×2 (03:24→14:52)
[2020-11-18] MEDS: HYDROcodone/acetaminophen (*CRX) 7.5-325 MG TABLET 1 TAB PO ×2 (03:26→23:39)
[2020-11-18 05:27] VITALS: BP 114/59; PULSE 88; RESP 16; TEMP 36.6; O2SAT 94
[2020-11-18 05:38] LABS: Hematocrit 37.8 % (37.0-47.0); Hemoglobin 11.5 g/dL (12.0-15.0); Mean Corpuscular HGB Conc 30.4 g/dl (32-36); Mean Corpuscular Hemoglobin 25.9 pg (26-34); Mean Corpuscular Volume 85.1 fl (80-100); Mean Platelet Volume 9.3 fl (7.4-10.4); Platelet Count Result 284 k/mm3 (150-375); Red Blood Count 4.44 M/mm3 (4.2-5.4); Red Cell Distribution Width 17.8 % (11.5-14.5); White Blood Count 18.3 K/mm3 (4.5-10.0)
[2020-11-18 05:44] LABS: Anion Gap 4 mmol/L (8-16); Blood Urea Nitrogen 12 mg/dL (7-17); Calcium 8.3 mg/dL (8.4-10.2); Carbon Dioxide 24 mmol/L (22-30); Chloride 108 mmol/L (98-107); Estimated CRCL calculation 71 ml/min; Estimated Glomerular Filt Rate > 60; Glucose 130 mg/dL (65-110); Potassium 4.4 mmol/L (3.4-5.0); Sodium 136 mmol/L (137-145)
[2020-11-18] MEDS: FAMOTIDINE 20 MG/2 ML VIAL IV PUSH (07:45)
[2020-11-18] MEDS: ACETAMINOPHEN 500 MG TABLET PO (07:45)
[2020-11-18] MEDS: LORazepam (*CRX) 0.5 MG TABLET PO ×2 (07:46→20:34)
[2020-11-18 08:00] VITALS: BP 124/70; PULSE 94; RESP 16; TEMP 37; O2SAT 96; BMI 25.3
--- NOTE | 2020-11-18 10:05 | WPDANESPN ---
Anes - Prog Note Post-Op Date/Time: 11/18/20 10:05 Cardiovascular status: normal Respiratory status: normal Airway patency: baseline Mental status: baseline Post-Op hydration status: normal Vital Signs: Last Vital Signs Temp 97.8 F 11/18/20 05:27 Pulse 88 11/18/20 05:27 Resp 16 11/18/20 05:27 BP 114/59 L 11/18/20 05:27 Pulse Ox 94 11/18/20 05:27 Pain Score (VAS): 210 I/O: Intake & Output 11/17/20 11/18/20 11/18/20 23:59 07:59 15:59 Intake Total 300 1500 Output Total 600 Balance 300 900 Laboratory Tests 11/18/20 05:13 11/18/20 05:13 11/17/20 11/18/20 11/18/20 09:21 05:13 05:13 WBC 18.3 H RBC 4.44 Hgb 11.5 L D Hct 37.8 MCV 85.1 MCH 25.9 L MCHC 30.4 L RDW 17.8 H Plt Count 284 MPV 9.3 Sodium 136 L Potassium 4.4 Chloride 108 H Carbon Dioxide 24 Anion Gap 4 L BUN 12 Creatinine 0.60 L Estim Creat Clear Calc 71 Estimated GFR > 60 Glucose 130 H Calcium 8.3 L Blood Type AB Positive Antibody Screen Negative Post-procedural complaints: none Patient Feedback: Patient satisfied with anesthetic care.
--- NOTE | 2020-11-18 10:56 | PM.PNGS ---
Progress Note: A&P Assessment and Plan (1) Nausea: Code(s): R11.0 - Nausea Status: Acute Assessment and Plan: seems to be related to either getting up earlier this morning or her narcotic pain medications. She has had nausea with narcotics in the past. I will reduce the dose of morphine and give it with some IV Phenergan. I will start IV ibuprofen on a scheduled q.6 hour dose to hopefully minimize the need of narcotic. She can also take oral Tylenol p.r.n. for pain. Hopefully this will pass as the day goes on. (2) Stricture of sigmoid colon: Code(s): K56.699 - Other intestinal obstruction unspecified as to partial versus complete obstruction Status: Chronic Assessment and Plan: Has bowel sounds and appropriate minimal amount of pain postop day 1. Ambulate and repeat labs again tomorrow. See note regarding nausea above. Seems to be doing well after surgery. (3) Colon, diverticulosis: Code(s): K57.30 - Diverticulosis of large intestine without perforation or abscess without bleeding Status: Chronic Assessment and Plan: Path pending (4) COPD (chronic obstructive pulmonary disease) with emphysema: Code(s): J43.9 - Emphysema, unspecified Status: Chronic Assessment and Plan: no complaints of shortness of breath or wheezing. Hospitalist following. Subjective Subjective Date/Time Seen: 11/18/20 10:56 Post Op day: 1 Patient reports: pain is less, no flatus, no bowel movement, nausea ( started after she got up and went to the bathroom then sat in the chair. Vomited about 4:00 a.m.), vomiting and afebrile Review of Systems Review of Systems: All systems reviewed & are unremarkable except as noted in HPI and below Constitutional: Constitutional: Denies chills, Denies fever(s), Denies headache(s), Denies night sweats and Reports poor appetite Cardiovascular: Cardiovascular: Denies chest pain and Denies dyspnea Respiratory: Respiratory: Denies cough and Denies dyspnea Gastrointestinal: Gastrointestinal: Reports as per HPI, Reports abdominal pain ( mild abdominal pain), Reports nausea and Reports vomiting Neurologic: Denies confusion and Denies headache(s) Exam Const: General: comfortable and no acute distress; No confusion Orientation/consciousness: patient oriented x3 and No confusion GI: Inspection: non-distended and incision ( incisions dry and appeared to be healing) GI Palp: Yes Soft to palpation, Yes Tenderness to palpation present (GI) ( mild appropriate tenderness), No Guarding due to palpation present (GI) and No Rebound tenderness present Auscultation: normal bowel sounds Neuro: General: patient oriented x3, no focal motor deficits and No confusion Extrem: General: no calf tenderness and no edema Psych: Affect: normal affect Insight: Good insight present (Psych) Judgement: Good judgement present (Psych) Objective Data Vital Signs Vital Signs: Vital Signs - 24 hr 11/17/20 16:20 11/17/20 16:35 11/17/20 16:45 Temperature 36.2 C L Pulse Rate 103 H 96 101 H Respiratory Rate 16 15 16 Blood Pressure 92/53 L 100/65 Pulse Oximetry 100 100 100 11/17/20 17:00 11/17/20 17:15 11/17/20 17:45 Temperature 35.6 C L Pulse Rate 99 90 96 Respiratory Rate 11 L 10 L 18 Blood Pressure 123/74 125/69 121/71 Pulse Oximetry 95 82 L 93 11/17/20 18:00 11/17/20 18:30 11/17/20 21:13 Temperature 35.7 C L 35.7 C L 36.6 C Pulse Rate 89 91 110 H Respiratory Rate 18 18 18 Blood Pressure 119/71 122/73 132/81 Pulse Oximetry 95 97 94 11/18/20 01:27 11/18/20 05:27 Temperature 36.4 C 36.6 C Pulse Rate 99 88 Respiratory Rate 18 16 Blood Pressure 129/80 114/59 L Pulse Oximetry 96 94 Intake/Output Intake/Output: Intake & Output 11/15/20 11/16/20 11/17/20 11/18/20 23:59 23:59 23:59 23:59 Intake Total 1450 1500 Output Total 900 Balance 1450 600 Meds/Results Medications: Active Medications Generic Name Dose R
[2020-11-18] MEDS: MORPHINE SULFATE (*CRX) 2 MG/ML INJ IV PUSH ×2 (11:23→19:28)
[2020-11-18] MEDS: PROMETHAZINE HCL 25 MG/ML AMPUL 12.5 MG IV PUSH ×2 (11:25→19:29)
[2020-11-18] MEDS: PANTOPRAZOLE 40 MG TABLET PO (11:29)
[2020-11-18] MEDS: ENOXAPARIN 30 MG/0.3 ML SYRINGE SUB-Q ×2 (11:30→20:30)
--- NOTE | 2020-11-18 11:30 | PM.IMHP ---
H&P: HPI History of Present Illness Date/Time: 11/18/20 11:30 FOR[facility], [facility] Past Medical History Medical History (Updated 11/18/20 @ 11:03 by Marco A Hurley MD) Anxiety Colon, diverticulosis Essential (primary) hypertension Family history of vasculitis Hyperlipidemia Nausea ALEKSANDRA (obstructive sleep apnea) Surgical History Surgical History H/O foot surgery H/O: hysterectomy Family History Family History Sibling Patient's sister is in good health Patient's brother is in good health Cerebrovascular accident Mother Hypertension Father Family history of cardiovascular disease Social History Social History Social History: 1-3 cigarettes a day Smoking packs per day: 1 Smoking cigarettes per day: 20.0 Years smoked: 45 Smoking pack-years: 45.00 Smoking status: Former smoker Tobacco type: cigarettes Second hand tobacco smoke exposure: No Smoking end date: 05/17/20 Additional smoking assessment comments: STATES HAD ONE CIGARETTE 10/30/20 USES NICOTINE PATCH Alcohol intake: never Substance use: never Substance use type: does not use Living arrangements: with family Gender identity (if verbalized by the patient): Female Sexual Orientation (if Verbalized by the Patient): Straight or Heterosexual Spiritual care concerns: No Meds Home Medications and Allergies Home Medications Medication Instructions Recorded Confirmed Type doxylamine succinate 25 mg tablet 25 mg PO HS 02/21/19 11/17/20 History albuterol sulfate 90 mcg/actuation 2 puff INHALATION Q6H PRN #18 gm 07/14/19 11/17/20 Rx aerosol inhaler lisinopril 10 mg tablet 10 mg PO DAILY #90 tablet 03/24/20 11/17/20 Rx omeprazole 20 mg capsule,delayed 20 mg PO DAILY #90 cap 03/24/20 11/17/20 Rx release estradiol 0.5 mg PO DAILY 05/10/20 11/17/20 History rosuvastatin 20 mg tablet 20 mg PO DAILY #90 tablet 06/17/20 11/17/20 Rx arginine (L-arginine) 1,000 mg PO TID 11/01/20 11/17/20 History ascorbic acid (vitamin C) 1,000 mg PO BID 11/01/20 11/17/20 History aspirin [Adult Low Dose Aspirin] 81 mg PO DAILY 11/01/20 11/17/20 History cholecalciferol (vitamin D3) 50 mcg PO DAILY 11/01/20 11/18/20 History melatonin 5 mg PO HS PRN 11/01/20 11/17/20 History multivitamin [Multi-Vitamins] 1 tablet PO DAILY 11/01/20 11/17/20 History zinc 50 mg PO BID 11/01/20 11/17/20 History lorazepam 0.5 mg tablet 0.5 mg PO BID PRN #60 tablet 11/02/20 11/17/20 Rx metronidazole 500 mg tablet 500 mg PO .COMPLEX #3 tablet 11/04/20 11/17/20 Rx neomycin 500 mg tablet See Rx Instructions .ROUTE 11/04/20 11/17/20 Rx .COMPLEX #6 tablet etglsygowo-xjgfqogr-fdkdnwyfvl 2 inh INHALATION BID 11/17/20 11/17/20 History [[facility]] Allergies Allergy/AdvReac Type Severity Reaction Status Date / Time ciprofloxacin AdvReac Mild RASH AND Verified 11/17/20 17:57 NAUSEA propoxyphene AdvReac Mild Nausea and Verified 11/17/20 17:57 Vomiting Vital Signs Vital Signs - 24 hr 11/17/20 16:20 11/17/20 16:35 11/17/20 16:45 Temperature 36.2 C L Pulse Rate 103 H 96 101 H Respiratory Rate 16 15 16 Blood Pressure 92/53 L 100/65 Pulse Oximetry 100 100 100 11/17/20 17:00 11/17/20 17:15 11/17/20 17:45 Temperature 35.6 C L Pulse Rate 99 90 96 Respiratory Rate 11 L 10 L 18 Blood Pressure 123/74 125/69 121/71 Pulse Oximetry 95 82 L 93 11/17/20 18:00 11/17/20 18:30 11/17/20 21:13 Temperature 35.7 C L 35.7 C L 36.6 C Pulse Rate 89 91 110 H Respiratory Rate 18 18 18 Blood Pressure 119/71 122/73 132/81 Pulse Oximetry 95 97 94 11/18/20 01:27 11/18/20 05:27 Temperature 36.4 C 36.6 C Pulse Rate 99 88 Respiratory Rate 18 16 Blood Pressure 129/80 114/59 L Pulse Oximetry 96 94 H&P: Results Labs Labs: Short CBC 11/18/20 Range/Units 05:13 WBC 18.3 H (4.5-1
[2020-11-18] MEDS: IBUPROFEN IV 800 MG/200 ML 800 MG/200 ML BAG 400 MG IVPB ×3 (11:31→23:34)
[2020-11-18 12:00] VITALS: BP 121/64; PULSE 94; RESP 16; TEMP 37; O2SAT 94
--- NOTE | 2020-11-18 12:16 | PM.IMCN ---
Assessment and Plan Assessment and plan (1) COPD (chronic obstructive pulmonary disease) with emphysema: Qualifiers: Emphysema type: unspecified Qualified Code(s): J43.9 - Emphysema, unspecified Code(s): J43.9 - Emphysema, unspecified Status: Chronic Assessment and Plan: - longstanding, not in any exacerbation, breathing comfortably on room air. - patient can continue her home Breztri inhaler b.i.d., and Proventil p.r.n. -Patient requesting pulmonary rehab which we can arrange on discharge. (2) Stricture of sigmoid colon: Code(s): K56.699 - Other intestinal obstruction unspecified as to partial versus complete obstruction Status: Chronic Assessment and Plan: -postop day 1 laparoscopic sigmoidectomy. Surgical management by Dr. Marco A Hurley - continue antibiotics as per primary team - patient has been put on clear liquid diet however is having nausea postoperatively and not tolerating p.o. intake, will minimize home medications to only essentials (3) Essential (primary) hypertension: Code(s): I10 - Essential (primary) hypertension Status: Acute Assessment and Plan: will continue to watch, may restart her lisinopril if hypertensive (4) Hyperlipidemia: Code(s): E78.5 - Hyperlipidemia, unspecified Status: Acute Assessment and Plan: may be able to restart Crestor, when she tolerates p.o. (5) Gastro-esophageal reflux disease without esophagitis: Code(s): K21.9 - Gastro-esophageal reflux disease without esophagitis Status: Chronic Assessment and Plan: Protonix while here, home uses Prilosec (6) Nausea: Code(s): R11.0 - Nausea Status: Acute Assessment and Plan: hypoactive bowel sounds, may be related to postop bowel taking some time to start moving or pain medications, will continue to follow. Zofran available (7) Cigarette smoker: Code(s): F17.210 - Nicotine dependence, cigarettes, uncomplicated Status: Chronic Assessment and Plan: may give nicotine patch if requested Additional Plan Diet: Clear liquid diet DVT prophylaxis: Lovenox GI prophylaxis: Protonix Code status: Full code Disposition: Pending clinical course, ideally home with home health. On discharge will plan for pulmonary rehab outpatient Thank you for consulting hospitalist team! We will continue to follow while inpatient. HPI Data of Consult Consult date: 11/18/20 Requesting Physician: Marco A Hurley MD Primary Care Provider: Shaun Faria, Consult Narrative Narrative: Nuha Back is a 65 year old female With past medical history of hypertension, hyperlipidemia, ALEKSANDRA, history of multiple episodes of ischemic colitis now postop day [address] Hurley. Hospitalist team was consulted for postop medical management COPD/asthma. Patient had surgery because of a stricture of her sigmoid colon, while having a colonoscopy was a near occlusion unable to pass colonoscopy scope or even an EGD scope. etiology restriction is likely secondary to recurrent ischemic colitis and diverticulitis in her sigmoid colon area. She had surgery yesterday which she tolerated well with only complaints nausea. for her chronic conditions she has history of COPD which he follows with physician in [place]. She is requesting outpatient pulmonary rehab which she can have on discharge. Shows no wheezing or any active signs of decompensation of COPD. I reviewed her home medications. We can continue holding her nonessential medications facility vitamins. She is on antibiotics Flagyl, Ancef. Patient brought her home Breztri inhaler which she may use. patient denies fever, chills, abdominal pain, chest pain. she endorses nausea and vomiting. Review of Systems Review of Systems: All systems reviewed & are unremarkable except as noted in HPI and below PMFSH Past Medical History Medical History (Reviewed
[2020-11-18 16:00] VITALS: BP 121/67; PULSE 90; RESP 16; TEMP 36.8; O2SAT 96
--- NOTE | 2020-11-18 17:23 | PCRCNOTE ---
Pt. wears a CPAP at home but states is not interested in wearing one while here at this point due to having so much going on. States will notify is if she changes her mind; R.N at bedside and aware.
[2020-11-18] MEDS: ALVIMOPAN 12 MG CAPSULE PO (20:30)
[2020-11-18 21:34] VITALS: BP 131/77; PULSE 86; RESP 16; TEMP 36.6; O2SAT 92
[2020-11-19] VITALS (8 sets, daily range): BP systolic 128–154; BP diastolic 71–94; PULSE 77–103; RESP 12–16; TEMP 36.5–37.3; O2SAT 92–97
[2020-11-19] MEDS: MELATONIN 5 MG TABLET PO (00:17)
[2020-11-19] MEDS: IBUPROFEN IV 800 MG/200 ML 800 MG/200 ML BAG 400 MG IVPB (05:43)
[2020-11-19] MEDS: lisinopriL 10 MG TABLET PO (05:45)
[2020-11-19] MEDS: HYDROcodone/acetaminophen (*CRX) 7.5-325 MG TABLET 1 TAB PO (05:49)
[2020-11-19 05:52] LABS: Hematocrit 35.3 % (37.0-47.0); Hemoglobin 10.6 g/dL (12.0-15.0); Mean Corpuscular Hemoglobin 26.1 pg (26-34); Mean Corpuscular Volume 86.9 fl (80-100); Mean Platelet Volume 9.5 fl (7.4-10.4); Platelet Count Result 260 k/mm3 (150-375); Red Blood Count 4.06 M/mm3 (4.2-5.4); Red Cell Distribution Width 18.3 % (11.5-14.5)
[2020-11-19 06:08] LABS: Anion Gap 3 mmol/L (8-16); Blood Urea Nitrogen 10 mg/dL (7-17); Carbon Dioxide 24 mmol/L (22-30); Chloride 112 mmol/L (98-107); Estimated CRCL calculation 61 ml/min; Estimated Glomerular Filt Rate > 60; Glucose 86 mg/dL (65-110); Potassium 3.9 mmol/L (3.4-5.0); Sodium 139 mmol/L (137-145)
[2020-11-19] MEDS: ALVIMOPAN 12 MG CAPSULE PO ×2 (08:55→20:10)
[2020-11-19] MEDS: ASPIRIN 81 MG ENTERIC TABLET PO (08:55)
[2020-11-19] MEDS: PANTOPRAZOLE 40 MG TABLET PO (08:55)
[2020-11-19] MEDS: ENOXAPARIN 30 MG/0.3 ML SYRINGE SUB-Q ×2 (08:57→20:10)
[2020-11-19] MEDS: HYDROcodone/acetaminophen (*CRX) 5-325 MG TABLET 1 TAB PO ×2 (09:49→19:07)
[2020-11-19] MEDS: estradioL 0.5 MG TABLET PO (09:50)
--- NOTE | 2020-11-19 10:38 | PHAR ---
The patient's home med of Dszajzizzo-Ljqwkoud-Qdhgymuumf [Breztri Aerosphere] 160-9-4.8 mcg/actuation has been verified.
[2020-11-19] MEDS: valACYclovir HCL 500 MG TABLET PO ×2 (10:54→20:10)
--- NOTE | 2020-11-19 11:46 | PM.IMPN ---
Progress Note: A&P Assessment and Plan (1) COPD (chronic obstructive pulmonary disease) with emphysema: Qualifiers: Emphysema type: unspecified Qualified Code(s): J43.9 - Emphysema, unspecified Code(s): J43.9 - Emphysema, unspecified Status: Chronic Assessment and Plan: Patient can have outpatient pulmonary rehab on discharge. She can continue her home inhalers as she is not wheezing or having any difficulty with breathing. (2) Essential (primary) hypertension: Code(s): I10 - Essential (primary) hypertension Status: Acute Assessment and Plan: Continue home lisinopril, elevated blood pressure may be from pain as well as her chronic hypertension (3) Hyperlipidemia: Qualifiers: Hyperlipidemia type: unspecified Qualified Code(s): E78.5 - Hyperlipidemia, unspecified Code(s): E78.5 - Hyperlipidemia, unspecified Status: Acute Assessment and Plan: Can resume her home Crestor as she tolerates p.o. (4) Gastro-esophageal reflux disease without esophagitis: Code(s): K21.9 - Gastro-esophageal reflux disease without esophagitis Status: Chronic Assessment and Plan: On Protonix (5) Stricture of sigmoid colon: Code(s): K56.699 - Other intestinal obstruction unspecified as to partial versus complete obstruction Status: Chronic Assessment and Plan: Postop day 2 laparoscopic sigmoidectomy (6) Herpes simplex: Code(s): B00.9 - Herpesviral infection, unspecified Status: Acute Assessment and Plan: Patient states she is feeling a fever blister started developing left corner of her lip, patient has tolerated Valtrex in the past, will start Valtrex q.12 hours. Additional Plan Diet: Full liquid diet, advanced as per surgery team DVT prophylaxis: Lovenox GI prophylaxis: Protonix Code status: Full code Disposition: Pending clinical course, home with home health, outpatient pulmonary rehab Thank you for consulting hospitalist team! We will continue to follow while inpatient. Time Spent With Patient Time with patient: 15 - 25 minutes Subjective Date/time seen: 11/19/20 11:46 Patient examined. She is doing well today no more nausea. She is postop day 2 laparoscopic sigmoidectomy. On discharge planning patient can have cardiopulmonary rehab outpatient. Patient was concerned about herpes outbreak around the left corner of her lip, this may happen as she has had major surgery, will start Valtrex 500 mg p.o. q.12 hours. Patient has used Valtrex in the past for previous herpes outbreaks. Patient denies fever, chills, nausea, vomiting, diarrhea, chest pain abdominal pain. Surgery will be advancing diet. Review of Systems Review of Systems: All systems reviewed & are unremarkable except as noted in HPI and below Exam Narrative: - GENERAL: well-nourished. pleasant woman in no acute distress - EYES: EOMI. Anicteric. - HENT: Moist mucous membranes. - LUNGS: Clear to auscultation bilaterally, no wheezing, rhonchi, or rales. - CARDIOVASCULAR: Regular rate and rhythm. No murmur. No JVD. - ABDOMEN: Soft, non-tender and non-distended. Appropriate postop changes. Improving bowel sounds. - EXTREMITIES: No edema. Peripheral pulses 2+. Non-tender. - NEUROLOGIC: No focal neurological deficits. CN II-XII grossly intact. - PSYCHIATRIC: Awake, Alert and oriented x 3. Appropriate mood and affect. - SKIN: No rashes or lesions. Warm. - LYMPH: No cervical lymphadenopathy. Objective Data Vital Signs Vital Signs: Vital Signs - 24 hr 11/18/20 12:00 11/18/20 16:00 11/18/20 21:34 Temperature 37.0 C 36.8 C 36.6 C Pulse Rate 94 90 86 Respiratory Rate 16 16 16 Blood Pressure 121/64 121/67 131/77 Pulse Oximetry 94 96 92 11/19/20 02:00 11/19/20 05:34 11/19/20 06:37 Temperature 36.6 C 37.3 C Pulse Rate 77 103 H Respiratory Rate 16 16 Blood Pressure 128/71 154/94 H 148/79 H Pulse Oximetry 93 92 11/19/20 10:00 Tem
--- NOTE | 2020-11-19 11:49 | PM.PNGS ---
Progress Note: A&P Assessment and Plan (1) Stricture of sigmoid colon: Code(s): K56.699 - Other intestinal obstruction unspecified as to partial versus complete obstruction Status: Chronic Assessment and Plan: doing well postop day 2. Nausea essentially gone. Pain is minimal. Patient already took a shower and has been up more. Will advance her diet and continue ambulation. Recheck exam and labs again tomorrow. (2) COPD (chronic obstructive pulmonary disease) with emphysema: Qualifiers: Emphysema type: unspecified Qualified Code(s): J43.9 - Emphysema, unspecified Code(s): J43.9 - Emphysema, unspecified Status: Chronic Assessment and Plan: I spoke with the hospitalist. No exacerbation or problems with her COPD or asthma. (3) Essential (primary) hypertension: Code(s): I10 - Essential (primary) hypertension Status: Acute (4) Nausea: Code(s): R11.0 - Nausea Status: Resolved Subjective Subjective Date/Time Seen: 11/19/20 11:49 Post Op day: 2 Patient reports: feels better, tolerating liquids well, flatus, no bowel movement and afebrile Review of Systems Review of Systems: All systems reviewed & are unremarkable except as noted in HPI and below Constitutional: Constitutional: Denies headache(s) Cardiovascular: Cardiovascular: Denies chest pain and Denies dyspnea Respiratory: Respiratory: Denies cough and Denies dyspnea Gastrointestinal: Gastrointestinal: Reports as per HPI, Reports abdominal pain ( Mild), Denies dyspepsia, Denies heartburn, Denies nausea and Denies vomiting Neurologic: Denies confusion and Denies headache(s) Exam Const: General: comfortable and no acute distress; No confusion Orientation/consciousness: patient oriented x3 and No confusion GI: Inspection: incision ( all incisions healing well) GI Palp: Yes Soft to palpation, Yes Tenderness to palpation present (GI) ( mild appropriate tenderness), No Guarding due to palpation present (GI) and No Rebound tenderness present Auscultation: absent bowel sounds Neuro: General: patient oriented x3, no focal motor deficits and No confusion Extrem: General: no calf tenderness and no edema Psych: Affect: normal affect Insight: Good insight present (Psych) Judgement: Good judgement present (Psych) Objective Data Vital Signs Vital Signs: Vital Signs - 24 hr 11/18/20 12:00 11/18/20 16:00 11/18/20 21:34 Temperature 37.0 C 36.8 C 36.6 C Pulse Rate 94 90 86 Respiratory Rate 16 16 16 Blood Pressure 121/64 121/67 131/77 Pulse Oximetry 94 96 92 11/19/20 02:00 11/19/20 05:34 11/19/20 06:37 Temperature 36.6 C 37.3 C Pulse Rate 77 103 H Respiratory Rate 16 16 Blood Pressure 128/71 154/94 H 148/79 H Pulse Oximetry 93 92 11/19/20 10:00 Temperature 36.8 C Pulse Rate 85 Respiratory Rate 12 Blood Pressure 148/75 H Pulse Oximetry 97 Intake/Output Intake/Output: Intake & Output 11/16/20 11/17/20 11/18/20 11/19/20 23:59 23:59 23:59 23:59 Intake Total 1450 3500 1260 Output Total 2500 1300 Balance 1450 1000 -40 Meds/Results Medications: Active Medications Generic Name Dose Route Start Last Admin Trade Name Josephq PRN Reason Stop Dose Admin Acetaminophen 500 mg 11/19/20 11:48 Acetaminophen 500 Mg Tablet PO Q6H PRN Mild Pain (1-3) or Fever Albuterol 2 puff 11/17/20 17:25 Albuterol Sulfate (*Sp) Aerosol 1 Puff INHALATION Q6H PRN shortness of breath or wheezing Alvimopan 12 mg 11/18/20 21:00 11/19/20 08:55 Alvimopan 12 Mg Capsule PO 11/25/20 21:01 12 mg Q12HR JONES Administration Aspirin 81 mg 11/18/20 09:00 11/19/20 08:55 Aspirin 81 Mg Enteric Tablet PO 12/18/20 09:01 81 mg DAILY JONES Administration Enoxaparin Sodium 30 mg 11/17/20 21:00 11/19/20 08:57 Enoxaparin 30 Mg/0.3 Ml Syringe SUB-Q 30 mg Q12HR JONES Administration Estradiol 0.5 mg 11/18/20 09:00 11/19/20 09:50 Estradio
[2020-11-19] MEDS: LORazepam (*CRX) 0.5 MG TABLET PO ×2 (11:56→20:11)
[2020-11-19] MEDS: CHOLECALCIFEROL 1,000 UNITS TABLET 2000 UNITS PO (11:56)
[2020-11-19] MEDS: IBUPROFEN 600 MG TABLET PO (13:28)
[2020-11-19] MEDS: NICOTINE (*PBKC) 14 MG PATCH 1 PATCH TRANSDERM (17:49)
[2020-11-20 01:55] VITALS: BP 156/89; PULSE 97; RESP 16; TEMP 36.5; O2SAT 92
[2020-11-20] MEDS: MELATONIN 5 MG TABLET PO (02:14)
[2020-11-20] MEDS: HYDROcodone/acetaminophen (*CRX) 5-325 MG TABLET 1 TAB PO ×3 (02:15→10:38)
[2020-11-20 05:54] VITALS: BP 148/82; PULSE 87; RESP 16; TEMP 36.1; O2SAT 93
[2020-11-20 06:07] LABS: Hematocrit 34.9 % (37.0-47.0); Hemoglobin 10.7 g/dL (12.0-15.0); Mean Corpuscular HGB Conc 30.7 g/dl (32-36); Mean Corpuscular Hemoglobin 26.2 pg (26-34); Mean Corpuscular Volume 85.3 fl (80-100); Mean Platelet Volume 9.7 fl (7.4-10.4); Platelet Count Result 274 k/mm3 (150-375); Red Blood Count 4.09 M/mm3 (4.2-5.4); Red Cell Distribution Width 17.9 % (11.5-14.5); White Blood Count 11.2 K/mm3 (4.5-10.0)
[2020-11-20] MEDS: ONDANSETRON HCL ODT 4 MG TABLET PO (06:08)
[2020-11-20 06:23] LABS: Anion Gap 4 mmol/L (8-16); Blood Urea Nitrogen 8 mg/dL (7-17); CRP 4.8 mg/dL (<1.0); Calcium 8.1 mg/dL (8.4-10.2); Carbon Dioxide 26 mmol/L (22-30); Chloride 110 mmol/L (98-107); Estimated CRCL calculation 71 ml/min; Estimated Glomerular Filt Rate > 60; Glucose 100 mg/dL (65-110); Potassium 3.8 mmol/L (3.4-5.0); Sodium 140 mmol/L (137-145)
[2020-11-20] MEDS: IBUPROFEN 600 MG TABLET PO (07:39)
[2020-11-20] MEDS: ALVIMOPAN 12 MG CAPSULE PO (08:30)
[2020-11-20] MEDS: ENOXAPARIN 30 MG/0.3 ML SYRINGE SUB-Q (08:30)
[2020-11-20] MEDS: CHOLECALCIFEROL 1,000 UNITS TABLET 2000 UNITS PO (08:31)
[2020-11-20] MEDS: valACYclovir HCL 500 MG TABLET PO (08:31)
[2020-11-20] MEDS: estradioL 0.5 MG TABLET PO (08:31)
[2020-11-20] MEDS: PANTOPRAZOLE 40 MG TABLET PO (08:32)
[2020-11-20] MEDS: lisinopriL 10 MG TABLET PO (08:32)
[2020-11-20] MEDS: NICOTINE (*PBKC) 14 MG PATCH 1 PATCH TRANSDERM (08:32)
[2020-11-20] MEDS: ASPIRIN 81 MG ENTERIC TABLET PO (08:32)
[2020-11-20 09:50] VITALS: BP 163/86; PULSE 87; RESP 16; TEMP 36.2; O2SAT 92
--- NOTE | 2020-11-20 11:05 | PM.DS ---
DS: Admitting Diagnosis Admitting Diagnosis stricture with of the sigmoid colon with partial colonic obstruction diverticulosis COPD cigarette smoker gastroesophageal reflux disease DS: Discharge Diagnosis Discharge Diagnosis (1) Stricture of sigmoid colon: Code(s): K56.699 - Other intestinal obstruction unspecified as to partial versus complete obstruction Status: Chronic (2) Colon, diverticulosis: Code(s): K57.30 - Diverticulosis of large intestine without perforation or abscess without bleeding Status: Chronic (3) COPD (chronic obstructive pulmonary disease) with emphysema: Qualifiers: Emphysema type: unspecified Qualified Code(s): J43.9 - Emphysema, unspecified Code(s): J43.9 - Emphysema, unspecified Status: Chronic (4) Cigarette smoker: Code(s): F17.210 - Nicotine dependence, cigarettes, uncomplicated Status: Chronic (5) Gastro-esophageal reflux disease without esophagitis: Code(s): K21.9 - Gastro-esophageal reflux disease without esophagitis Status: Chronic DS: Summary Hospital Course Reason for hospitalization: sigmoid colon stricture and partial colonic obstruction Hospital Course: patient is had abdominal pain for 2 years. She had an episode of ischemic colitis 2 years ago. She has had at least 4 episodes of abdominal pain this seemed to be mostly in the right lower quadrant and associated with diaphoresis and the urge to have a bowel movement. She will then have diarrhea and vomiting, feeling exhausted for at least a couple of days. There was concern about mesenteric vascular disease and the patient did see a vascular surgeon at [facility] who felt there was no evidence of chronic mesenteric ischemia. Last May, Dr. Padilla attempted to perform colonoscopy but was unable to do so even with the gastroscope. Following the attempted colonoscopy the patient had severe pain with some bleeding and it took a considerable amount of time to feel back to normal. She particularly avoids any kind of high-fiber food due to creation of the above symptoms. After discussion in the office she was prepared for surgery and then taken to the operating room on the day of admission 11/17/2020. Hand access laparoscopic sigmoidectomy with number 28 EEA stapled colorectal anastomosis was performed. Following surgery, the patient was able to void without difficulty. She initially experienced some nausea on postop day 1. But this resolved. Her diet was slowly advanced on postop day 2. She was eating solid food and comfortable on oral analgesics on postop day 3. She had had a bowel movement on postop day 2. She was able to be discharged on postop day 3. In good condition. She has pretty significant COPD and asthma due to her long-term history of smoking. She was seen in the hospital by the hospitalist service for perioperative medical management. She had no significant complications from a pulmonary standpoint while in the hospital. She was arranged to participate in cardiopulmonary rehab following her surgery to minimize risks of pulmonary complications. She did stop smoking for about 6 weeks prior to surgery and will continue to hold off on smoking for at least a month after discharge. Pathology is pending at the time of discharge. Status at Discharge Functional status at discharge: independent ambulation Overall status at discharge: patient is progressing back to baseline Time Spent with Patient Time attestation: Total time spent providing and/or coordinating discharge services: Exam Const: General: comfortable and no acute distress; No confusion Orientation/consciousness: patient oriented x3 and No confusion GI: Inspection: non-distended and incision ( All incisions dry and healing well) GI Palp: Yes Soft to palpation, Yes Tenderness to palpation present (GI) ( mild appropriate incisional tenderness), No Guarding due to palpation present (GI) and N
--- NOTE | 2020-11-20 13:12 | PM.IMPN ---
Progress Note: A&P Assessment and Plan (1) COPD (chronic obstructive pulmonary disease) with emphysema: Qualifiers: Emphysema type: unspecified Qualified Code(s): J43.9 - Emphysema, unspecified Code(s): J43.9 - Emphysema, unspecified Status: Chronic Assessment and Plan: patient requesting pulmonary rehab, will give referral (2) Herpes simplex: Code(s): B00.9 - Herpesviral infection, unspecified Status: Acute Assessment and Plan: Given Rx of Valtrex for 1 week, patient will follow-up with PCP (3) Stricture of sigmoid colon: Code(s): K56.699 - Other intestinal obstruction unspecified as to partial versus complete obstruction Status: Chronic Assessment and Plan: POD 3 laparoscopic sigmoidectomy, tolerating diet, plan for discharge today follow-up with general surgeon in 2 weeks Additional Plan continue all home medication Disposition: Home Time Spent With Patient Time with patient: 15 - 25 minutes Subjective Date/time seen: 11/20/20 13:12 patient seen examined. She is doing well plan on discharge today. Will send home with Valtrex prescription. Patient will follow-up with outpatient pulmonary rehab clinic. follow-up with general surgeon for postop in 2 weeks. patient denies fever, chills, nausea, vomiting, diarrhea, chest pain, abdominal pain, left facial pain. She thinks her fever blisters improving with Valtrex. She is tolerating a diet without problems. Review of Systems Review of Systems: All systems reviewed & are unremarkable except as noted in HPI and below Exam Narrative: - GENERAL: well-nourished. pleasant woman in no acute distress - EYES: EOMI. Anicteric. - HENT: Moist mucous membranes. - LUNGS: Clear to auscultation bilaterally, no wheezing, rhonchi, or rales. - CARDIOVASCULAR: Regular rate and rhythm. No murmur. No JVD. - ABDOMEN: Soft, non-tender and non-distended. Appropriate postop changes. Normal bowel sounds. - EXTREMITIES: No edema. Peripheral pulses 2+. Non-tender. - NEUROLOGIC: No focal neurological deficits. CN II-XII grossly intact. - PSYCHIATRIC: Awake, Alert and oriented x 3. Appropriate mood and affect. - SKIN: No rashes or lesions. Warm. - LYMPH: No cervical lymphadenopathy. Objective Data Vital Signs Vital Signs: Vital Signs - 24 hr 11/19/20 13:28 11/19/20 14:00 11/19/20 18:00 Temperature 36.8 C 37.2 C 37.1 C Pulse Rate 82 95 Respiratory Rate 16 16 Blood Pressure 136/73 142/71 H Pulse Oximetry 93 95 11/19/20 21:58 11/20/20 01:55 11/20/20 05:54 Temperature 36.5 C 36.5 C 36.1 C L Pulse Rate 85 97 87 Respiratory Rate 16 16 16 Blood Pressure 140/77 156/89 H 148/82 H Pulse Oximetry 94 92 93 11/20/20 09:50 Temperature 36.2 C L Pulse Rate 87 Respiratory Rate 16 Blood Pressure 163/86 H Pulse Oximetry 92 Intake/Output Intake/Output: Intake & Output 11/17/20 11/18/20 11/19/20 11/20/20 23:59 23:59 23:59 23:59 Intake Total 1450 3500 2390 840 Output Total 2500 2600 Balance 1450 1000 -210 840 Labs Labs: Laboratory Results - last 24 hr 11/20/20 11/20/20 05:31 05:31 WBC 11.2 H RBC 4.09 L Hgb 10.7 L Hct 34.9 L MCV 85.3 MCH 26.2 MCHC 30.7 L RDW 17.9 H Plt Count 274 MPV 9.7 Sodium 140 Potassium 3.8 Chloride 110 H Carbon Dioxide 26 Anion Gap 4 L BUN 8 Creatinine 0.60 L Estim Creat Clear Calc 71 Estimated GFR > 60 Glucose 100 Calcium 8.1 L C-Reactive Protein 4.8 H
== END 2020-11-20 11:45 | disposition home or self-care (01) | DRG 331 ==
LOC: ANH2MED 17:28
PROVIDERS: Admitting Provider Surgery; PCP Internal Medicine; Visit Provider Surgery
PROC: 0D1E4Z4 Bypass Large Intestine to Cutaneous, Percutaneous Endoscopic Approach (ICD-10-PCS; principal; 2020-11-17 10:30)
DX: K56.690 Other partial intestinal obstruction (principal); K57.30 Diverticulosis of large intestine without perforation or abscess without bleeding; J43.9 Emphysema, unspecified; F17.210 Nicotine dependence, cigarettes, uncomplicated; K21.9 Gastro-esophageal reflux disease without esophagitis; I10 Essential (primary) hypertension; G47.33 Obstructive sleep apnea (adult) (pediatric); E78.5 Hyperlipidemia, unspecified; B00.9 Herpesviral infection, unspecified; R11.0 Nausea; Z79.82 Long term (current) use of aspirin; Z79.899 Other long term (current) drug therapy
CPT/HCPCS: 36415; 80048; 85027; 86140; 86850; 86900; 86901; 88307; 94640; A9270; C1713; C1729; J0131; J0690; J1100; J1170; J1650; J1741; J1885; J2250; J2270; J2405; J2550; J2704; J2710; J3010; J7030; J7120

== ENCOUNTER 2020-11-22 12:29 | Emergency (ER) | payer MEDICARE, SELFPAY ==
[2020-11-22 12:38] VITALS: BP 150/83; PULSE 99; RESP 16; TEMP 37; O2SAT 94
[2020-11-22 12:55] LABS: Basophils Percent Auto 0.2 % (0.2-1.2); Eosinophils Absolute Auto 0.1 K/mm3 (0-0.3); Eosinophils Percent Auto 0.5 % (0-4.4); Hemoglobin 13.5 g/dL (12.0-15.0); Immature Granulocyte Absolute 0.05 K/mm3 (0.00-0.031); Immature Granulocyte Percent A 0.5 % (0-0.5); Lymphocytes Absolute Auto 1.95 K/mm3 (0.9-3.2); Mean Corpuscular HGB Conc 31.4 g/dl (32-36); Mean Corpuscular Hemoglobin 25.9 pg (26-34); Mean Corpuscular Volume 82.4 fl (80-100); Mean Platelet Volume 9.1 fl (7.4-10.4); Monocytes Absolute Auto 0.7 K/mm3 (0.1-0.6); Monocytes Percent Auto 7.2 % (2.6-8.5); Neutrophils Absolute Auto 7.4 K/mm3 (1.3-6.7); Neutrophils Percent Auto 72.6 % (45.5-73.1); Platelet Count Result 397 k/mm3 (150-375); Red Blood Count 5.22 M/mm3 (4.2-5.4); Red Cell Distribution Width 17.5 % (11.5-14.5); White Blood Count 10.3 K/mm3 (4.5-10.0)
[2020-11-22 13:09] LABS: Alanine Aminotransferase 46 U/L (4-35); Albumin Level 4.2 g/dL (3.5-5.1); Alkaline Phosphatase 81 U/L (38-126); Anion Gap 9 mmol/L (8-16); Aspartate Amino Transferase 58 U/L (14-36); Bilirubin,Total 0.3 mg/dL (0.2-1.3); Blood Urea Nitrogen 7 mg/dL (7-17); Calcium 9.5 mg/dL (8.4-10.2); Carbon Dioxide 27 mmol/L (22-30); Chloride 100 mmol/L (98-107); Estimated CRCL calculation 61 ml/min; Estimated Glomerular Filt Rate > 60; Glucose 110 mg/dL (65-110); Lipase 20 U/L (23-300); Potassium 3.9 mmol/L (3.4-5.0); Sodium 136 mmol/L (137-145)
--- NOTE | 2020-11-22 14:15 | PC.NURSE ---
saw pt getting into car with assist. Went out to help pt to car. She states she is going home. Cannot wait anymore
== END 2020-11-22 14:15 | disposition left against medical advice (07) ==
PROVIDERS: Emergency Provider Emergency Medicine; PCP Surgery
DX: Z53.21 Procedure and treatment not carried out due to patient leaving prior to being seen by health care provider (principal)
CPT/HCPCS: 36415; 80053; 83690; 85025; 99199

== ENCOUNTER 2020-11-22 14:50 | Outpatient (CLI) | payer MEDICARE, SELFPAY ==
--- NOTE | ~2020-11-22 | CT_ITS ---
EXAMINATION: CT abdomen pelvis wo con DATE: 11/22/2020 16:21 INDICATION: Nausea and vomiting. TECHNIQUE: Computed tomography (CT) of the abdomen and pelvis was performed without intravenous contr ast. Automated exposure control and iterative reconstruction technique were employed. The dose-length product was 441.63 mGy-cm. COMPARISON: CT studies dated 03/16/2020 and 11/13/2018 FINDINGS: Very small bilateral pleural effusions with dependent atelectasis at the posterior sulci of the bilat eral lower lobes. Heart size is normal. Small pericardial effusion. Gradient of posterior layering sl udge in the otherwise normal-appearing gallbladder. Liver, spleen, pancreas, bilateral adrenal glands and kidneys are normal. Suggestion of prior partial colectomy with anastomotic suture line at the si gmoid colon. Suggestion mild wall thickening along several fluid-filled but not likely dilated loops of small bowel in the left abdomen with associated mild mesenteric edema suggesting an enteritis. No dilated bowel to suggest obstruction. The appendix is not visualized. Minimal free fluid in the pelvi s. No abscess or free intraperitoneal gas. No pathologically enlarged abdominal or pelvic lymphadenop athy. There are few tiny foci of subcutaneous gas in the left and right anterior pelvic wall likely r elated to subcutaneous injections. Mild scattered degenerative skeletal changes in the lumbar spine, sacroiliac joints and hips. IMPRESSION: 1. Mild wall thickening and mesenteric edema such with several fluid-filled but not frankly dilated l oops of small bowel in the left abdomen suggestive of an enteritis. 2. Very small bilateral pleural effusions. 3. Small pericardial effusion. Reviewed, dictated and finalized at location A. IMPRESSION: 1. Mild wall thickening and mesenteric edema such with several fluid-filled but not frankly dilated loops of small bowel in the left abdomen suggestive of an enteritis. 2. Very small bilateral pleural effusions. 3. Small pericardial effusion.
[2020-11-22 16:09] LABS: Add Urine Microscopic? YES; Appearance Urine Clear (Clear); Bilirubin Urine Negative (Negative); Blood Urine 2+ (Negative); Color Urine Yellow (Yellow); Glucose Urine UA Negative (Negative); Ketones Urine Trace mg/dL (Negative); Leukocyte Esterase Ur Negative LEU/UL (Negative); Mucus Urine Rare /lpf; Nitrate Urine Negative (Negative); Protein Urine Negative (Negative); RBC Urine 21-50 /hpf (0-2); Squamous Epithelial Cell Urine Rare /hpf (Few); Urobilinogen Urine Negative mg/dL (<2.0); WBC Urine 0-3 /hpf
== END 2020-11-22 14:51 | disposition home or self-care (01) ==
PROVIDERS: PCP Internal Medicine; Visit Provider Surgery
DX: G89.18 Other acute postprocedural pain (principal); R10.84 Generalized abdominal pain; R11.2 Nausea with vomiting, unspecified; I31.3 Pericardial effusion (noninflammatory); J90 Pleural effusion, not elsewhere classified
CPT/HCPCS: 36415; 74176; 80053; 81001; 83690; 85025; 99199

== ENCOUNTER 2021-01-12 09:30 | Outpatient (RCR) | payer MEDICARE, SELFPAY | END 2021-01-12 11:30 | disposition home or self-care (01) | PROVIDERS: PCP Internal Medicine | DX: J44.9 Chronic obstructive pulmonary disease, unspecified (principal) | CPT/HCPCS: 93798; 97150; G0424 ==

== ENCOUNTER 2021-08-15 09:37 | Outpatient (CLI) | payer MEDICARE, SELFPAY ==
[2021-08-15 09:45] VITALS: PULSE 103; O2SAT 94
[2021-08-15 09:52] VITALS: PULSE 120; O2SAT 94
--- NOTE | 2021-08-15 10:05 | HOMEO2EVAL ---
Evaluation was performed at [facility] Home Oxygen Evaluation RC: Home Oxygen (O2) Evaluation Start: 08/15/21 10:01 Freq: Status: Active Protocol: RPE Activity Type Activity Date Activity User E-Sign Co-Sign Detail Recorded Client Recorded Date Recorded By Document 08/15/21 09:45 ELVIS [id number] 08/15/21 10:04 SJB Document 08/15/21 09:52 SJB [id number] 08/15/21 10:04 SJB 08/15/21 08/15/21 09:45 09:52 Home O2 Evaluation Test Phase Resting Exercise Oxygen Delivery Room Air Room Air Pulse Oximetry (90-100 %) 94 94 Pulse Rate (60-100 beats/min) 103 H 120 H Activity Tolerance Excellent Rating of Perceived Dyspnea (PD) +1 Mild, Noticeable to the Participant but Not to an Observer Ambulation Distance (feet) 1,500 Ambulation Distance (meters) 457.17 Home Oxygen Evaluation Comments Pt will start Pt walked walk now on approx 1500 ft room air. on room air, walking briskly . Tolerated well. Sp02 remained at 93% and above. HR up to 120. Re -educated on PLB. Treatment Charges O2 Evaluation - Outpatient
== END 2021-08-15 09:38 | disposition home or self-care (01) ==
LOC: CHSCARD 09:41
PROVIDERS: PCP Internal Medicine
DX: J44.9 Chronic obstructive pulmonary disease, unspecified (principal)
CPT/HCPCS: 94618

== ENCOUNTER 2021-08-24 00:39 | Day surgery (SDC) | payer MEDICARE, SELFPAY ==
[2021-08-07 11:33] VITALS: BMI 28.3
--- NOTE | 2021-08-23 10:18 | PM.HPGS ---
History of Present Illness History of Present Illness Consent: Risks, benefits, and alternatives have been discussed and questions answered. Patient agrees to proceed with procedure. Chief complaint: neoplasm screening Narrative: Nuha Back is a 65 year old female Referred for colon cancer screening. She had had a severe stricture of the sigmoid colon that was resected last year. Prior to that attempted colonoscopy was not successful because the scope could not be advanced above the sigmoid colon. Review of Systems Review of Systems: All systems reviewed & are unremarkable except as noted in HPI and below PMFSH Past Medical History Medical History Anxiety Colon, diverticulosis Essential (primary) hypertension Family history of vasculitis Hyperlipidemia Nausea ALEKSANDRA (obstructive sleep apnea) Surgical History Surgical History H/O foot surgery H/O: hysterectomy S/P laparoscopic-assisted sigmoidectomy 11/17/20 hand access laparoscopic sigmoidectomy with stapled colorectal anastomosis Family History Family History Sibling Patient's sister is in good health Patient's brother is in good health Cerebrovascular accident Mother Hypertension Father Family history of cardiovascular disease Social History Social History Social History: 1-3 cigarettes a day Smoking packs per day: 1 Smoking cigarettes per day: 20.0 Years smoked: 45 Smoking pack-years: 45.00 Smoking status: Former smoker Tobacco type: cigarettes Second hand tobacco smoke exposure: No Smoking end date: 05/17/20 Additional smoking assessment comments: STATES HAD ONE CIGARETTE 10/30/20 USES NICOTINE PATCH Alcohol intake: never Alcohol use details: social drinker 1-2 times per month Substance use: never Substance use type: does not use Living arrangements: with family Gender identity (if verbalized by the patient): Female Sexual Orientation (if Verbalized by the Patient): Straight or Heterosexual Spiritual care concerns: No Meds Home Medications and Allergies Home Medications Medication Instructions Recorded Confirmed Type doxylamine succinate 25 mg tablet 25 mg PO HS 02/21/19 08/07/21 History albuterol sulfate 90 mcg/actuation 2 puff INHALATION Q6H PRN #18 gm 07/14/19 08/07/21 Rx aerosol inhaler estradiol 0.5 mg PO DAILY 05/10/20 08/07/21 History melatonin 5 mg PO HS PRN 11/01/20 08/07/21 History multivitamin 1 tablet PO DAILY 11/01/20 08/07/21 History Breztri Aerosphere 2 inh INHALATION BID 11/17/20 08/07/21 History rosuvastatin 20 mg tablet 20 mg PO DAILY #90 tablet 12/20/20 08/07/21 Rx lisinopril 10 mg tablet 10 mg PO DAILY #90 tablet 01/16/21 08/07/21 Rx omeprazole 20 mg PO EVERY OTHER DAY 08/07/21 08/07/21 History valacyclovir [Valtrex] 1,000 mg PO PRN PRN 08/07/21 08/07/21 History lorazepam 0.5 mg tablet 0.5 mg PO BID PRN #60 tablet 08/14/21 08/24/21 Rx Allergies Allergy/AdvReac Type Severity Reaction Status Date / Time ciprofloxacin AdvReac Mild RASH AND Verified 08/24/21 06:50 NAUSEA propoxyphene AdvReac Mild Nausea and Verified 08/24/21 06:50 Vomiting Exam Const: General: alert Orientation/consciousness: patient oriented x3 Resp: Auscultation: clear to auscultation bilaterally Cardio: Rhythm: regular rhythm GI: GI Palp: Yes Soft to palpation and No Tenderness to palpation present (GI) Neuro: General: patient oriented x3 Assessment and Plan Assessment and plan (1) Colon cancer screening: Code(s): Z12.11 - Encounter for screening for malignant neoplasm of colon Status: Acute Assessment and Plan: Colonoscopy with possible biopsy or polypectomy or cautery or injection of substances.
[2021-08-24 06:52] VITALS: BP 119/78; PULSE 100; RESP 18; TEMP 36.6; O2SAT 96
[2021-08-24] MEDS: LACTATED RINGERS 1,000 ML 150 ML IV CONT (06:58)
--- NOTE | 2021-08-24 07:43 | WPDANESEPPF ---
Anes - Initial Pre Proc Eval Procedure: Operation Date: 08/24/21 08:00 Proposed Procedures p Screening Colonoscopy - Surjit Tavarez MD Date/Time: 08/24/21 07:43 Surgeon: Surjit Tavarez MD Pre Op Diagnosis: neoplasm screening Patient Data Age: 65 Gender: F Height: 1.65 m Weight: 80.2 kg Last Vital Signs Temp 97.8 F 08/24/21 06:52 Pulse 100 08/24/21 06:52 Resp 18 08/24/21 06:52 BP 119/78 08/24/21 06:52 Pulse Ox 96 08/24/21 06:52 Allergies Allergy/AdvReac Type Severity Reaction Status Date / Time ciprofloxacin AdvReac Mild RASH AND Verified 08/24/21 06:50 NAUSEA propoxyphene AdvReac Mild Nausea and Verified 08/24/21 06:50 Vomiting Home Medications Medication Instructions Recorded Confirmed Type doxylamine succinate 25 mg tablet 25 mg PO HS 02/21/19 08/07/21 History albuterol sulfate 90 mcg/actuation 2 puff INHALATION Q6H PRN #18 gm 07/14/19 08/07/21 Rx aerosol inhaler estradiol 0.5 mg PO DAILY 05/10/20 08/07/21 History melatonin 5 mg PO HS PRN 11/01/20 08/07/21 History multivitamin 1 tablet PO DAILY 11/01/20 08/07/21 History Breztri Aerosphere 2 inh INHALATION BID 11/17/20 08/07/21 History rosuvastatin 20 mg tablet 20 mg PO DAILY #90 tablet 12/20/20 08/07/21 Rx lisinopril 10 mg tablet 10 mg PO DAILY #90 tablet 01/16/21 08/07/21 Rx omeprazole 20 mg PO EVERY OTHER DAY 08/07/21 08/07/21 History valacyclovir [Valtrex] 1,000 mg PO PRN PRN 08/07/21 08/07/21 History lorazepam 0.5 mg tablet 0.5 mg PO BID PRN #60 tablet 08/14/21 08/24/21 Rx Patient hx anesthesia problems: none Family hx anesthesia problems: none Results Review: All pre-operative results and documents have been reviewed as part of the pre-operative evaluation. [facility] Past Medical History Medical History Anxiety Colon, diverticulosis Essential (primary) hypertension Family history of vasculitis Hyperlipidemia Nausea ALEKSANDRA (obstructive sleep apnea) Surgical History Surgical History H/O foot surgery H/O: hysterectomy S/P laparoscopic-assisted sigmoidectomy 11/17/20 hand access laparoscopic sigmoidectomy with stapled colorectal anastomosis Family History Family History Sibling Patient's sister is in good health Patient's brother is in good health Cerebrovascular accident Mother Hypertension Father Family history of cardiovascular disease Social History Social History Social History: 1-3 cigarettes a day Smoking packs per day: 1 Smoking cigarettes per day: 20.0 Years smoked: 45 Smoking pack-years: 45.00 Smoking status: Former smoker Tobacco type: cigarettes Second hand tobacco smoke exposure: No Smoking end date: 05/17/20 Additional smoking assessment comments: STATES HAD ONE CIGARETTE 10/30/20 USES NICOTINE PATCH Alcohol intake: never Alcohol use details: social drinker 1-2 times per month Substance use: never Substance use type: does not use Living arrangements: with family Gender identity (if verbalized by the patient): Female Sexual Orientation (if Verbalized by the Patient): Straight or Heterosexual Spiritual care concerns: No Anes - Eval Final PreProcedure Day of Procedure 08/24/21 07:43 Patient weight: overweight Heart: regular rate and rhythm Lungs: clear to auscultation Airway: Mallampati scale class II Neurological: alert and oriented Last oral intake: >/= 8 hours ASA classification: III Emergent: no Anesthetic plan: proceed Anesthesia type and monitoring: general and standard monitoring Results Review: All pre-operative results and documents have been reviewed as part of the pre-operative evaluation. Informed Consent: The patient's anesthetic plan and its attendant risks and benefits were discussed with the patient/family/POA
[2021-08-24 08:11] VITALS: BP 97/65; PULSE 93; RESP 24; O2SAT 95
[2021-08-24 08:21] VITALS: BP 107/70; PULSE 85; RESP 19; O2SAT 97
[2021-08-24 08:31] VITALS: BP 110/75; PULSE 81; RESP 19; O2SAT 95
== END 2021-08-24 08:38 | disposition home or self-care (01) ==
PROVIDERS: PCP Internal Medicine; Visit Provider Internal Medicine Gastroenterology
PROC: 0DJD8ZZ Inspection of Lower Intestinal Tract, Via Natural or Artificial Opening Endoscopic (ICD-10-PCS; CPT 45378; principal; 2021-08-24 08:00)
DX: Z12.11 Encounter for screening for malignant neoplasm of colon (principal); K63.5 Polyp of colon; Z98.0 Intestinal bypass and anastomosis status; Z79.51 Long term (current) use of inhaled steroids; F41.9 Anxiety disorder, unspecified; I10 Essential (primary) hypertension; E78.5 Hyperlipidemia, unspecified; G47.33 Obstructive sleep apnea (adult) (pediatric); K57.30 Diverticulosis of large intestine without perforation or abscess without bleeding; Z87.891 Personal history of nicotine dependence
CPT/HCPCS: 45380; 88305; J2704; J7120

== ENCOUNTER → 2021-12-20 14:30 | Outpatient (CLI) | payer MEDICARE, SELFPAY ==
--- NOTE | ~2021-12-20 | US_ITS ---
EXAMINATION: US thyroid DATE: 12/20/2021 14:52 INDICATION: Nontoxic single thyroid nodule. TECHNIQUE: Multiple ultrasound images of the thyroid were obtained. COMPARISON: None. FINDINGS: The right thyroid lobe measures 4.0 x 1.3 x 1.1 cm. The left thyroid lobe measures 4.2 x 1.6 x 1.3 c m. In the left thyroid lobe, there is a 1.8 cm mixed cystic and solid, hypoechoic, wider than tall n odule with smooth margin without echogenic foci (TI-RADS TR3). In the left thyroid lobe, there is a 4 mm nodule. In the right thyroid lobe, there is a 4 mm nodule. In the right thyroid lobe, there is an 8 mm solid, very hypoechoic, wider than tall nodule with smooth margin without echogenic foci (TR4). IMPRESSION: 1. Multinodular goiter. Thyroid ultrasound is recommended in one year. Reviewed, dictated and finalized at location A.
== END ==
PROVIDERS: PCP Internal Medicine; Visit Provider Nurse Practitioner
DX: E04.2 Nontoxic multinodular goiter (principal)
CPT/HCPCS: 76536

== ENCOUNTER 2022-12-19 13:38 | Outpatient (CLI) | payer MEDICARE, SELFPAY ==
--- NOTE | ~2022-12-19 | US_ITS ---
Thyroid ultrasound. Clinical History: Thyroid nodule COMPARISON: 12/20/2021 Findings: Real-time sonography of the thyroid gland was performed. The right lobe measures 2.8 x 1.2 x 1.2 cm. The left lobe measures 3.5 x 1.7 x 1.4 cm. The isthmus is 3 mm in AP diameter. There is a 0.4 cm hypoechoic/cystic nodule at the right upper pole. There is a 1.7 x 1.1 cm mixed tea id and cystic, somewhat spongiform nodule at the left lower pole. There is an additional 0.4 cm cysti c nodule at the left mid to upper pole. Impression: Stable bilateral thyroid nodules, as detailed above. Reviewed, dictated and finalized at location M. Impression: Stable bilateral thyroid nodules, as detailed above.
--- NOTE | ~2022-12-19 | US_ITS ---
EXAMINATION: US renal BI DATE: 12/19/2022 15:13 INDICATION: Hematuria TECHNIQUE: Multiple ultrasound grayscale images of the kidneys were obtained. COMPARISON: None. FINDINGS: The right kidney measures 9.0 x 5.5 x 5.7 cm. The left kidney measures 10.1 x 5.3 x 4.2 cm. The kidne ys demonstrate normal echogenicity. There is no hydronephrosis in either kidney. No shadowing stones identified. The bladder is normal. IMPRESSION: 1. Normal kidneys without hydronephrosis. Reviewed, dictated and finalized at location A.
== END 2022-12-19 13:39 | disposition home or self-care (01) ==
PROVIDERS: PCP Internal Medicine; Visit Provider Internal Medicine
DX: E04.1 Nontoxic single thyroid nodule (principal); R31.9 Hematuria, unspecified
CPT/HCPCS: 76536; 76775